=== PATIENT | male | born 1980 | race Caucasian/White ===

== ENCOUNTER 2019-12-08 10:47 | Emergency (ER) | payer BC, OTHER ==
--- NOTE | 2019-12-08 11:47 | EDM.PDOC ---
ED HPI GENERAL MEDICAL PROBLEM - General Chief Complaint: Genitourinary Problem Stated Complaint: SWOLLEN R TESTICLE Time Seen by Provider: 12/08/19 10:55 Source of Information: Reports: Patient History Limitations: Reports: No Limitations - History of Present Illness INITIAL COMMENTS - FREE TEXT/NARRATIVE: The patient presents with right testicle pain. This started a couple weeks ago. He denies any trauma to that area. He has no dysuria or discharge. He is currently sexually active with one partner his . He had intercourse last night and this morning and it hurt in the testicle. He has no other symptoms such as fever, chills, cough, congestion, runny nose, chest pain, shortness of breath, abdominal pain, nausea or vomiting. He has never had trouble with his testicle before. Onset: Gradual Duration: Day(s): (2) Location: Reports: Other (right testicle pain) Quality: Reports: Sharp Severity: Moderate Improves with: Reports: None Worsens with: Reports: None Associated Symptoms: Reports: No Other Symptoms testicle Pain Score (Numeric/FACES): 8 - Related Data Allergies Allergy/AdvReac Type Severity Reaction Status Date / Time No Known Allergies Allergy Verified 12/08/19 10:56 Home Meds: Home Meds Esomeprazole Magnesium [Nexium 24Hr] 20 mg PO DAILY 12/08/19 [History] Levofloxacin [Levaquin] 500 mg PO DAILY #10 tablet 12/08/19 [Rx] Past Medical History - Past Health History Medical/Surgical History: Denies Medical/Surgical History Social & Family History - Tobacco Use Tobacco Use Status *Q: Never Tobacco User - Recreational Drug Use Recreational Drug Use: No ED ROS GENERAL - Review of Systems Review Of Systems: See Below Constitutional: Reports: No Symptoms HEENT: Reports: No Symptoms Respiratory: Reports: No Symptoms Cardiovascular: Reports: No Symptoms Endocrine: Reports: No Symptoms GI/Abdominal: Reports: No Symptoms : Reports: Other (Right testicle pain) Musculoskeletal: Reports: No Symptoms Skin: Reports: No Symptoms ED EXAM, RENAL/ - Physical Exam Exam: See Below Exam Limited By: No Limitations General Appearance: Alert, No Apparent Distress Ears: Normal External Exam Nose: Normal Inspection Head: Atraumatic, Normocephalic Neck: Normal Inspection Respiratory/Chest: No Respiratory Distress, Lungs Clear, Normal Breath Sounds Cardiovascular: Regular Rate, Rhythm, No Edema, No Murmur GI/Abdominal: Soft, Non-Tender, No Organomegaly, No Mass (Male) Exam: Cremasteric Reflex, Testicular Tenderness (R). No: Hernia, Penile Lesions, Rash, Scrotal Swelling Course - Vital Signs Last Recorded V/S: Last Vital Signs Temp 97 F 12/08/19 10:52 Pulse 69 12/08/19 10:52 Resp 18 12/08/19 10:52 BP 132/89 12/08/19 10:52 Pulse Ox 96 12/08/19 10:52 - Orders/Labs/Meds Orders: Active Orders 24 hr Category Date Time Status Testicular US [Scrotum and Contents] [US] Stat Exams 12/08/19 11:07 Taken UA RFX ARTURO AND CULT IF INDIC [URIN] Stat Lab 12/08/19 11:06 Stop Req - Re-Assessments/Exams Free Text/Narrative Re-Assessment/Exam: 12/08/19 11:49 I ordered a UA and an US. 12/08/19 12:56 The US shows acute right epididymitis. He cannot urinate for me. I will treat him with levaquin. Departure - Departure Time of Disposition: 13:00 Disposition: Home, Self-Care 01 Condition: Good Clinical Impression: Epididymitis - Discharge Information *PRESCRIPTION DRUG MONITORING PROGRAM REVIEWED*: Not Applicable *COPY OF PRESCRIPTION DRUG MONITORING REPORT IN PATIENT ANGIE: Not Applicable Prescriptions: Levofloxacin [Levaquin] 500 mg PO DAILY #10 tablet Referrals: Marisol Chilel, NUTRITION DIRECTOR [Primary Care Provider] - Forms: ED Department Discharge Additional Instructions: Drink plenty of fluids. Take the levaquin daily for 10 days. The levaquin can cause tendonitis so do not do any heavy lifting while taking it. Take tylenol or motirn for any pain. Please return if you are worse. Sepsis Event Note (ED) - Evaluation Sepsis Screening Result: No Definite Risk - Focused Exam Vital Signs: Vital Signs Temp Pulse Resp BP Pulse Ox 12/08/19 10:52 97 F 69 18 132/89 96 - My Orders Last 24 Hours: My Active Orders 12/08/19 11:06 UA RFX ARTURO AND CULT IF INDIC [URIN] Stat 12/08/19 11:07 Testicular US [Scrotum and Contents] [US] Stat - Assessment/Plan Last 24 Hours: My Active Orders 12/08/19 11:06 UA RFX ARTURO AND CULT IF INDIC [URIN] Stat 12/08/19 11:07 Testicular US [Scrotum and Contents] [US] Stat
--- NOTE | 2019-12-12 13:15 | US ---
PROCEDURE INFORMATION: Exam: US Scrotum Exam date and time: 12/08/2019 11:58 AM Age: 39 years old Clinical indication: Scrotum pain TECHNIQUE: Imaging protocol: Real-time ultrasound of the scrotum and contents with color Doppler and image documentation. COMPARISON: No relevant prior studies available. FINDINGS: Right testicle: Normal right testicle 3.4 x 2.0 x 1.6 cm. Left testicle: Normal left testicle 3.3 x 2.2 x 1.6 cm. Epididymides: Enlarged and hyperemic right epididymis. Normal left epididymis. Scrotum: No hydroceles. IMPRESSION: Acute right epididymitis. Thank you for allowing us to participate in the care of your patient. Dictated and Authenticated by: Ozzie Wong MD 12/08/2019 1:26 PM Central Time ([place] & [place]) [email or web address]
== END 2019-12-08 13:06 | disposition home or self-care (01) ==
LOC: JD.ED 10:47
DX: N45.1 Epididymitis (principal); Z79.899 Other long term (current) drug therapy
CPT/HCPCS: 76870; 76870-26; 93975; 99283; 99284-25